=== PATIENT | female | born 1970 | race Hispanic/Latino ===

== ENCOUNTER 2024-08-16 01:53 | Inpatient (IN) | payer OTHER ==
[2024-08-16] MEDS ORDERED: KETOROLAC 30 MG/ML INJ ONE (02:25)
[2024-08-16] MEDS ORDERED: ONDANSETRON 4 MG/2 ML VIAL ONE ×2 (02:25→11:02)
[2024-08-16] MEDS ORDERED: NA CHLORIDE 0.9% 1,000 ML ONE ×2 (02:26→05:07)
[2024-08-16] MEDS ORDERED: MORPHINE 4 MG/ML SYR ONE ×2 (02:26→05:07)
[2024-08-16] MEDS ORDERED: MORPHINE 2 MG/ML SYR ONE (02:26)
[2024-08-16] MEDS ORDERED: FAMOTIDINE 20 MG/2 ML VIAL IV ONE (02:26)
[2024-08-16 02:57] LABS: Absolute Basophils 0.1 K/uL (0-0.5); Absolute Eosinophils 0.1 K/uL (0-0.5); Absolute Lymphocytes (CBC) 1.8 K/uL (0.7-4.9); Absolute Monocytes 0.5 K/uL (0.1-1.3); Absolute Neutrophil 10.3 K/uL (1.8-8.0); Basophils % 0.6 % (0-1.3); Eosinophils % 0.9 % (0-4.4); Hematocrit 39.2 % (36.0-45.0); Lymphocytes % 14.1 % (15.3-44.8); MCH 30.4 pg (27.0-35.0); MCHC 33.2 g/dL (32.0-36.0); MCV 91.6 fL (80-100); MPV 9.6 fL (7.6-11.3); Monocytes % 4.1 % (3.3-12.3); Neutrophils % 80.3 % (41.7-73.7); Nucleated Red Blood Cells % 0.1 % (0-0); Platelets 323 thou/uL (152-406); RBC Red Blood Cell Count 4.28 M/uL (3.86-4.86); Red Cell Distribution Width 12.8 % (12.1-15.2)
[2024-08-16 03:09] LABS: Albumin 3.7 g/dL (3.4-5.0); Albumin/Globulin Ratio 0.9 (1.1-1.8); Anion Gap 8.8 mEq/L (5.0-15.0); Bilirubin Total 0.3 mg/dL (0.2-1.0); Potassium 3.8 mEq/L (3.5-5.1); Protein, Total 7.7 g/dL (6.4-8.2)
--- NOTE | 2024-08-16 03:36 | RAD REPORT ---
CLINICAL HISTORY: Abdominal pain COMPARISON: None. TECHNIQUE: US ABDOMEN LIMITED 08/16/2024 2:18 AM PRESSURE DISPATCHER FINDINGS: Gallbladder contains multiple gallstones. There is trace pericholecystic fluid. Common bile duct tali ures 9 mm. There is a reported negative sonographic Magana's sign. IMPRESSION: Cholelithiasis with trace pericholecystic fluid. Negative sonographic Magana's sign. Electronically signed by: Desmond Spencer MD 08/16/2024 03:33 AM PRESSURE DISPATCHER RP Due to temporary technical issues with the PACS/[employer] reporting system, reports are being signed by the in-house radiologist without review as a courtesy to ensure prompt reporting. The interpreting radiologist is fully responsible for the content of the report. Transcribed Date/Time: 08/16/2024 3:36 AM
[2024-08-16] MEDS ORDERED: METOCLOPRAMIDE 10 MG/2mL INJ ONE (05:06)
[2024-08-16] MEDS ORDERED: PIPERACIL/TAZO 3.375 GM VIAL IV ONE (05:07)
[2024-08-16] MEDS ORDERED: NA CHLORIDE 0.9% 100 ML ONE (05:07)
[2024-08-16] MEDS ORDERED: ACETAMINOPHEN 325 MG TABLET PO PRN (05:29)
--- NOTE | 2024-08-16 05:34 | P.HP ---
Certification for Inpatient Patient admitted to: Inpatient With expected LOS: >2 Midnights Practitioner: I am a practitioner with admitting privileges, knowledge of patient current condition, hospital course, and medical plan of care. Services: Services provided to patient in accordance with Admission requirements found in Title 42 Section 412.3 of the Code of Federal Regulations Patient History Date of Service: 08/16/24 Reason for admission: Abdominal Pain History of Present Illness: 54-year-old female with past medical history of fibroid uterus status post hysterectomy who started having abdominal pain last night. Pain is located in the epigastric region radiating to upper abdomen. Sharp, 8 out of 10 in severity, intermittent, associated with some nausea but no vomiting. Denies any fever or chills. No chest pain or shortness of breath. Pain is 1 out of 10 in severity at the time of interview with pain medication. Patient was assessed in the ER and is admitted for further management of acute cholecystitis and surgical consult Home medications list reviewed: Yes - Past Medical/Surgical History Past Medical History: Reviewed- Non-Contributory Past Surgical History: Reviewed- Non-Contributory -: Hysterectomy - Family History Family History: Reviewed- Non-Contributory - Social History Smoking Status: Never smoker Review of Systems 10-point ROS is otherwise unremarkable Physical Examination - Vital Signs Temperature: 98.2 F Blood Pressure: 136/72 Pulse: 78 Respirations: 18 Pulse Ox (%): 94 - Physical Exam General: Alert, In no apparent distress, Oriented x3 HEENT: Atraumatic, Normocephalic Neck: Supple Respiratory: Clear to auscultation bilaterally, Normal air movement Cardiovascular: Regular rate/rhythm, Normal S1 S2 Capillary refill: <2 Seconds Gastrointestinal: Soft and benign, W/out hepatosplenomegaly, Tenderness Musculoskeletal: No clubbing Integumentary: No rashes Neurological: Normal strength at 5/5 x4 extr, Cranial nerves 3-12 intact, Normal reflexes 2+ Lymphatics: No axilla or inguinal lymphadenopathy - Studies Laboratory Data (last 24 hrs) 08/16/24 08/16/24 02:30 02:30 WBC 12.80 H Hgb 13.0 Hct 39.2 Plt Count 323 Sodium 139 Potassium 3.8 BUN 15 Creatinine 0.77 Glucose 136 H Total Bilirubin 0.3 AST 18 ALT 26 Alkaline Phosphatase 95 Lipase 38 Assessment and Plan - Plan Acute cholecystitis Ultrasound suggestive of cholelithiasis Surgical consult: Dr. Villeda Pain control Started on IV antibiotic IV hydration Leukocytosis Will monitor CBC in a.m. GI/DVT prophylaxis Advanced directive full code Discharge Plan: Home Plan to discharge in: 48 Hours - Advance Directives Does patient have a Living Will: No Does patient have a Durable POA for Healthcare: No - Code Status/Comfort Care Code Status: Full Code Time Spent Managing Pts Care (In Minutes): 48
--- NOTE | 2024-08-16 05:40 | ER ---
Nurse's Notes [facility] Name: Natalie Velazquez Age: 54 yrs Sex: Female : 1970 Arrival Date: 08/16/2024 Time: 01:53 Bed 7 Private MD: Diagnosis: Cholelithiasis with acute cholecystitis Presentation: 08/16 02:13 Chief complaint: Patient states: upper abdominal pain, epigastric pain radiating to lg3 chest and upper back with vomiting beginning 6 day ago. Coronavirus screen: Client denies travel out of the [place] in the last 14 days. At this time, the client does not indicate any symptoms associated with coronavirus-19. Ebola Screen: No symptoms or risks identified at this time. Initial Sepsis Screen: Does the patient meet any 2 criteria? No. Patient's initial sepsis screen is negative. Does the patient have a suspected source of infection? No. Patient's initial sepsis screen is negative. Risk Assessment: Do you want to hurt yourself or someone else? Patient reports no desire to harm self or others. Onset of symptoms was August 10, 2024. 02:13 Method Of Arrival: Ambulatory lg3 02:13 Acuity: ASHLEY 3 lg3 Triage Assessment: 02:17 General: Appears in no apparent distress. uncomfortable, Behavior is calm, cooperative. lg3 Pain: Complains of pain in epigastric area Pain radiates to back. EENT: No deficits noted. No signs and/or symptoms were reported regarding the EENT system. Neuro: No deficits noted. Manzo Agitation-Sedation Scale (RASS): 0 - Alert and Calm Level of Consciousness is awake, alert, obeys commands, Oriented to person, place, time, situation. Cardiovascular: No deficits noted. Capillary refill < 3 seconds Clubbing of nail beds is absent JVD is absent Patient's skin is warm and dry. Respiratory: No deficits noted. Airway is patent Respiratory effort is even, unlabored, Respiratory pattern is regular, symmetrical. GI: Abdomen is round non-distended, Reports upper abdominal pain, cramping, epigastric pain, nausea, vomiting. : No signs and/or symptoms were reported regarding the genitourinary system. Derm: No deficits noted. No signs and/or symptoms reported regarding the dermatologic system. Skin is intact, is healthy with good turgor, Skin is dry, Skin is normal, Skin temperature is warm. Musculoskeletal: No deficits noted. Circulation, motion, and sensation intact. Range of motion: intact in all extremities. 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 - Infectious Disease History:: Denies. - Social history:: Smoking status: Patient denies any tobacco usage or history of. Patient uses alcohol, occasionally. Patient/guardian denies using street drugs. - Family history:: not pertinent. Screenin:20 [facility] ED Fall Risk Assessment (Adult) History of falling in the last 3 months, lg3 including since admission No falls in past 3 months (0 pts) Confusion or Disorientation No (0 pts) Intoxicated or Sedated No (0 pts) Impaired Gait No (0 pts) Mobility Assist Device Used No (0 pt) Altered Elimination No (0 pt) Score/Fall Risk Level 0 - 2 = Low Risk Oriented to surroundings, Maintained a safe environment, Educated pt \T\ family on fall prevention, incl call for assistance when getting out of bed, Assessed \T\ reinforced patient's understanding of fall precautions. Abuse screen: Denies threats or abuse. Denies injuries from another. Nutritional screening: No deficits noted. Tuberculosis screening: No symptoms or risk factors identified. 05:30 [facility] ED Fall Risk Assessment (Adult) History of falling in the last 3 months, ay including since admission No falls in past 3 months (0 pts) Confusion or Disorientation No (0 pts) Intoxicated or Sedated No (0 pts) Impaired Gait No (0 pts) Mobility Assist Device Used No (0 pt) Altered Elimination No (0 pt) Score/Fall Risk Level 0 - 2 = Low Risk Oriented to surroundings, Maintained a safe environment, Educated pt \T\ family on fall prevention, incl call for assistance when getting out of bed, Assessed \T\ reinforced patient's understanding of fall precautions. Assessment: 02:20 General: see triage assessment. lg3 05:41 General: Appears in no apparent distress. comfortable, Behavior is calm, cooperative. ay Pain: Complains of pain in abdomen Pain radiates to back. Neuro: Level of Consciousness is awake, alert, obeys commands, Oriented to person, place, time, situation, Director Multimedia are equal bilaterally Speech is normal. Cardiovascular: No deficits noted. Respiratory: No deficits noted. GI: Bowel sounds present X 4 quads. : No deficits noted. EENT: No deficits noted. Derm: No deficits noted. Musculoskeletal: No deficits noted. Vital Signs: 02:13 BP 117 / 78; Pulse 80; Resp 17; Temp 97.8; Pulse Ox 100% on R/A; Weight 77.11 kg (R); lg3 Height 5 ft. 6 in. (R); Pain 8/10; 05:09 BP 116 / 74; Pulse 73; Resp 15; Pulse Ox 99% on R/A; ty 05:30 BP 105 / 65; Pulse 69; Resp 18; Pulse Ox 97% on R/A; ay 02:13 Body Mass Index 27.44 (77.11 kg, 167.64 cm) lg3 02:13 Pain Scale: Adult lg3 Wilber Coma Score: 05:18 Eye Response: spontaneous(4). Motor Response: obeys commands(6). Verbal Response: sp4 oriented(5). Total: 15. 05:30 Eye Response: spontaneous(4). Motor Response: obeys commands(6). Verbal Response: ay oriented(5). Total: 15. ED Course: 01:53 Patient arrived in ED. jj6 01:58 Fidel Roberts MD is Attending Physician. sp4 02:17 Triage completed. lg3 02:17 Arm band placed on right wrist. lg3 02:20 Patient has correct armband on for positive identification. Placed in gown. Bed in low lg3 position. Call light in reach. Side rails up X 1. Client placed on continuous cardiac and pulse oximetry monitoring. NIBP monitoring applied. Door closed. Noise minimized. Warm blanket given. Pillow given. Family accompanied patient. 02:20 Patient maintains SpO2 saturation greater than 95% on room air. lg3 02:28 Inserted saline lock: 20 gauge in right antecubital area, using aseptic technique. ty Blood collected. Flushed with 10 mL NS. 02:30 Initial lab(s) drawn, by me, sent to lab. ty 02:34 CBC with Diff Sent. ty 02:34 CMP Sent. ty 02:34 Lipase Sent. ty 02:58 Abdomen Limited US In Process Unspecified. EDMS 03:06 Vidhi Black, RN is Primary Nurse. lg3 03:36 CT Abd/Pelvis - IV Contrast Only In Process Unspecified. EDMS 05:03 Test, Urine Sent. ty 05:03 Urinalysis w/ reflexes Sent. ty 05:03 Urine collected: clean catch specimen, clear. ty 05:30 Client placed on continuous cardiac and pulse oximetry monitoring. NIBP monitoring ay applied. NIBP on. Door closed. Noise minimized. Lights dimmed. Warm blanket given. 05:30 Patient maintains SpO2 saturation greater than 95% on room air. ay 05:39 Kiran Patricio MD is Hospitalizing Provider. sp4 05:40 Primary Nurse role handed off by Vidhi Black, RN ay 05:40 Twin Bui RN is Primary Nurse. ay 07:05 Provided Education on: Procedure Consent. ay 07:05 No provider procedures requiring assistance completed. ay 10:37 Patient admitted, IV remains in place. intact, No redness/swelling at site. jl7 Administered Medications: 02:34 Drug: Famotidine IVP 20 mg IVP once; dilute with 10 mL 0.9% NaCl; give over 2 minutes lg3 Route: IVP; Site: right antecubital; 05:03 Follow up: Response: No adverse reaction lg3 02:34 Drug: Ondansetron IVP 4 mg IVP once; over 2 minutes Route: IVP; Site: right antecubital;lg3 05:02 Follow up: Response: No adverse reaction lg3 02:34 Drug: NS 0.9% IV 1000 ml IV at 1 bolus Per protocol; to be given as a bolus over 60 lg3 minutes Route: IV; Rate: 1 bolus; Site: right antecubital; 03:40 Follow up: Response: No adverse reaction; IV Status: Completed infusion; IV Intake: lg3 1000ml 02:35 Drug: morphine IVP or IV 6 mg IVP once over 4 mins Route: IVP; Infused Over: 4 mins; lg3 Site: right antecubital; 05:03 Follow up: Response: No adverse reaction; Marked relief of symptoms; Pain is decreased lg3 02:35 Drug: TORadol - Ketorolac IVP 15 mg IVP once Route: IVP; Site: right antecubital; lg3 05:02 Follow up: Response: No adverse reaction lg3 05:30 Drug: Piperacillin-Tazobactam IVPB 3.375 grams IVPB once over 60 mins; (mix in NS 100 ay mL) Route: IVPB; Infused Over: 60 mins; Site: right antecubital; 05:58 Follow up: Response: No adverse reaction ay 07:09 Follow up: IV Status: Completed infusion; IV Intake: 100ml ay 05:30 Drug: morphine IVP or IV 4 mg IVP once over 4 mins Route: IVP; Infused Over: 4 mins; ay Site: right antecubital; 05:58 Follow up: Response: No adverse reaction ay 05:30 Drug: metoCLOPramide IVP 10 mg IVP once; over 1 to 2 minutes Route: IVP; Site: right ay antecubital; 05:57 Follow up: Response: No adverse reaction ay 05:30 Drug: NS 0.9% IV 1000 ml IV at 125 ml/hr continuous Route: IV; Rate: 125 ml/hr; Site: ay right antecubital; 05:57 Follow up: Response: No adverse reaction ay 07:07 Follow up: Response: No adverse reaction; IV Status: Infusion continued upon admission ay Medication: 05:30 VIS not applicable for this client. ay Intake: 03:40 IV: 1000ml; Total: 1000ml. lg3 07:09 IV: 100ml; Total: 1100ml. ay Outcome: 05:40 Decision to Hospitalize by Provider. sp4 07:04 Admitted to ER Hold. Please see [facility] for further documentation. ay 07:04 Condition: stable 07:04 Instructed on the need for admit, 10:37 Patient left the ED. jl7 Signatures: Dispatcher [employer] EDMS Nancie Llanes RN RN jl7 Vidhi Black RN RN lg3 Kavita Lopez Sergey, MD MD sp4 Gómez Patel Awudu, RN RN ay
--- NOTE | 2024-08-16 05:40 | EDPHYS ---
Physician Documentation [facility] Name: Natalie Velazquez Age: 54 yrs Sex: Female : 1970 Arrival Date: 08/16/2024 Time: 01:53 Bed 7 Private MD: ED Physician Fidel Roberts HPI: 08/16 01:58 This 54 yrs old Female presents to ER via Unassigned with complaints of sp4 Epigastric Pain, Chest Pain. 05:18 54-year-old female presents with acute onset of upper abdominal pain associated with sp4 vomiting worsening in the last 6 days.. 05:18 History of total abdominal hysterectomy.. 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 - Infectious Disease History:: Denies. - Social history:: Smoking status: Patient denies any tobacco usage or history of. Patient uses alcohol, occasionally. Patient/guardian denies using street drugs. - Family history:: not pertinent. ROS: 05:18 Constitutional: Negative for fever, chills, and weight loss, Eyes: Negative for injury, sp4 pain, redness, and discharge, Abdomen/GI: Positive upper abdominal pain positive nausea vomiting. 05:18 All other systems are negative, Exam: 05:18 Constitutional: This is a well developed, well nourished patient who is awake, alert, sp4 and in no acute distress. Head/Face: Normocephalic, atraumatic. Eyes: Pupils equal round and reactive to light, extra-ocular motions intact. Lids and lashes normal. Conjunctiva and sclera are not injected. Cornea within normal limits. Periorbital areas with no swelling, redness, or edema. ENT: Nares patent. No nasal discharge, no septal abnormalities noted. Tympanic membranes are normal and external auditory canals are clear. Oropharynx with no redness, swelling, or masses, exudates, or evidence of obstruction, uvula midline. Mucous membranes moist. Neck: Trachea midline, no thyromegaly or masses palpated, and no cervical lymphadenopathy. Supple, full range of motion without nuchal rigidity, or vertebral point tenderness. Chest/axilla: Normal chest wall appearance and motion. Nontender with no deformity. No lesions are appreciated. Cardiovascular: Regular rate and rhythm with a normal S1 and S2. No gallops, murmurs, or rubs. Normal PMI, no JVD. No pulse deficits. Respiratory: Lungs have equal breath sounds bilaterally, clear to auscultation and percussion. No rales, rhonchi or wheezes noted. No increased work of breathing, no retractions or nasal flaring. Abdomen/GI: Soft, with normal bowel sounds. No distension or tympany. No guarding or rebound. No evidence of tenderness throughout. Back: No spinal tenderness. No costovertebral tenderness. Skin: Warm, dry with normal turgor. Normal color with no rashes, no lesions, and no evidence of cellulitis. MS/ Extremity: Pulses equal, no cyanosis. Neurovascular intact. Full, normal range of motion. Neuro: Awake and alert, GCS 15, oriented to person, place, time, and situation. Cranial nerves II-XII grossly intact. Motor strength 5/5 in all extremities. Sensory grossly intact. Psych: Awake, alert, with orientation to person, place and time. Behavior, mood, and affect are within normal limits Vital Signs: 02:13 BP 117 / 78; Pulse 80; Resp 17; Temp 97.8; Pulse Ox 100% on R/A; Weight 77.11 kg (R); lg3 Height 5 ft. 6 in. (R); Pain 8/10; 05:09 BP 116 / 74; Pulse 73; Resp 15; Pulse Ox 99% on R/A; ty 05:30 BP 105 / 65; Pulse 69; Resp 18; Pulse Ox 97% on R/A; ay 02:13 Body Mass Index 27.44 (77.11 kg, 167.64 cm) lg3 02:13 Pain Scale: Adult lg3 Anderson Coma Score: 05:18 Eye Response: spontaneous(4). Motor Response: obeys commands(6). Verbal Response: sp4 oriented(5). Total: 15. 05:30 Eye Response: spontaneous(4). Motor Response: obeys commands(6). Verbal Response: ay oriented(5). Total: 15. MDM: 02:02 Medical Screening Exam initiated sp4 04:53 ED course: EXAM DESCRIPTION: Abdomen Pelvis W Contrast RadLex: CTABDOMEN PELVIS WITH IV sp4 CONTRAST CLINICAL HISTORY: 54 years Female; ABD PAIN; IV ONLYBed Name: 12 TECHNIQUE: CT of the abdomen and pelvis [with] intravenous contrast. All CT scans at this facility use dose modulation, iterative reconstruction, and/or weight based dosing when appropriate to reduce radiation dose to as low as reasonably achievable. COMPARISON: None. FINDINGS: Lower thorax: Mild bibasilar atelectasis. Abdomen: Stomach:Within normal limits Liver:No focal lesions. No intrahepatic ductal distention. Gallbladder:Cholelithiasis with wall thickening. Pancreas:Within normal limits Spleen:Within normal limits Right kidney:No hydronephrosis. No focal lesion. Left kidney:No hydronephrosis. No focal lesion. Adrenal glands:Within normal limits Vascular structures:Within normal limits Nodes:No lymphadenopathy by size criteria Pelvis: Small bowel:No significant distention. Appendix:Within normal limits Colon:No distention or acute pericolonic edema. Peritoneum: No free intraperitoneal fluid or air. Bones: No acute bone findings. Bladder: Unremarkable. Reproductive organs: No acute findings. IMPRESSION: Cholelithiasis with gallbladder wall thickening, concerning for acute cholecystitis. Please see same-day dedicated ultrasound for further evaluation. Electronically signed by: Carmen Villegas MD 08/16/2024 04:13 AM. ED course: CLINICAL HISTORY: Abdominal pain COMPARISON: None. TECHNIQUE: US ABDOMEN LIMITED 08/16/2024 2:18 AM LAPEL BASTER FINDINGS: Gallbladder contains multiple gallstones. There is trace pericholecystic fluid. Common bile duct measures 9 mm. There is a reported negative sonographic Magana's sign. IMPRESSION: Cholelithiasis with trace pericholecystic fluid. Negative sonographic Magana's sign. . 05:38 Differential diagnosis: acute pericarditis, gastritis, pericarditis, pleurisy, sp4 pneumonia. Data reviewed: vital signs, nurses notes, lab test result(s), EKG, radiologic studies, CT scan, ultrasound. ED course: Patient has evidence of acute cholecystitis. Will be admitted for further evaluation.. 05:38 Consideration of Admission/Observation Patient was admitted/placed on observation. sp4 Escalation of care including admission/observation considered. Management of patient was discussed with the following: Hospitalist: Sheng ORTIZ . Cupola Melter: Dane ORTIZ . 08/16 02:18 Order name: CBC with Diff; Complete Time: 04:48 sp4 08/16 02:18 Order name: CMP; Complete Time: 04:48 sp4 08/16 02:18 Order name: Lipase; Complete Time: 04:48 sp4 08/16 02:18 Order name: Test, Urine; Complete Time: 08:52 sp4 08/16 02:18 Order name: Urinalysis w/ reflexes; Complete Time: 08:52 sp4 08/16 05:20 Order name: PT-INR; Complete Time: 08:52 sp4 08/16 05:34 Order name: Urinalysis w/ reflexes EDAL 08/16 05:34 Order name: CBC with Automated Diff EDAL 08/16 05:34 Order name: CBC with Automated Diff EDAL 08/16 05:34 Order name: Comprehensive Metabolic Panel EDAL 08/16 05:34 Order name: Comprehensive Metabolic Panel [facility] 08/16 02:18 Order name: Abdomen Limited US; Complete Time: 04:48 sp4 08/16 02:18 Order name: CT Abd/Pelvis - IV Contrast Only; Complete Time: 08:52 sp4 08/16 05:20 Order name: EKG; Complete Time: 05:20 sp4 08/16 05:34 Order name: CONS Physician Consult [facility] 08/16 02:18 Order name: IV Saline Lock; Complete Time: 02:34 sp4 08/16 02:18 Order name: Labs collected and sent; Complete Time: 02:34 sp4 08/16 04:55 Order name: NPO [facility] 08/16 05:20 Order name: EKG - Nurse/Tech sp4 Administered Medications: 02:34 Drug: Famotidine IVP 20 mg IVP once; dilute with 10 mL 0.9% NaCl; give over 2 minutes lg3 Route: IVP; Site: right antecubital; 05:03 Follow up: Response: No adverse reaction lg3 02:34 Drug: Ondansetron IVP 4 mg IVP once; over 2 minutes Route: IVP; Site: right antecubital;lg3 05:02 Follow up: Response: No adverse reaction lg3 02:34 Drug: NS 0.9% IV 1000 ml IV at 1 bolus Per protocol; to be given as a bolus over 60 lg3 minutes Route: IV; Rate: 1 bolus; Site: right antecubital; 03:40 Follow up: Response: No adverse reaction; IV Status: Completed infusion; IV Intake: lg3 1000ml 02:35 Drug: morphine IVP or IV 6 mg IVP once over 4 mins Route: IVP; Infused Over: 4 mins; lg3 Site: right antecubital; 05:03 Follow up: Response: No adverse reaction; Marked relief of symptoms; Pain is decreased lg3 02:35 Drug: TORadol - Ketorolac IVP 15 mg IVP once Route: IVP; Site: right antecubital; lg3 05:02 Follow up: Response: No adverse reaction lg3 05:30 Drug: Piperacillin-Tazobactam IVPB 3.375 grams IVPB once over 60 mins; (mix in NS 100 ay mL) Route: IVPB; Infused Over: 60 mins; Site: right antecubital; 05:58 Follow up: Response: No adverse reaction ay 07:09 Follow up: IV Status: Completed infusion; IV Intake: 100ml ay 05:30 Drug: morphine IVP or IV 4 mg IVP once over 4 mins Route: IVP; Infused Over: 4 mins; ay Site: right antecubital; 05:58 Follow up: Response: No adverse reaction ay 05:30 Drug: metoCLOPramide IVP 10 mg IVP once; over 1 to 2 minutes Route: IVP; Site: right ay antecubital; 05:57 Follow up: Response: No adverse reaction ay 05:30 Drug: NS 0.9% IV 1000 ml IV at 125 ml/hr continuous Route: IV; Rate: 125 ml/hr; Site: ay right antecubital; 05:57 Follow up: Response: No adverse reaction ay 07:07 Follow up: Response: No adverse reaction; IV Status: Infusion continued upon admission ay Disposition Summary: 08/16/24 05:40 Hospitalization Ordered Notes: Hospitalization Status: Inpatient Admission sp4 Provider: Kiran Patricio sp4 Condition: Stable sp4 Problem: new sp4 Symptoms: have improved sp4 Bed/Room Type: Standard sp4 Location: [facility] ER HOLD(08/16/24 05:41) rv1 Room Assignment: ERHOLD-(08/16/24 05:41) rv1 Diagnosis - Cholelithiasis with acute cholecystitis sp4 Forms: - Medication Reconciliation Form sp4 - SBAR form sp4 - Leadership Thank You Letter sp4 Signatures: Dispatcher [employer] EDVidhi Jameson RN RN lg3 Fawn Finnegan rv1 Fidel Roberts MD MD sp4 Twin Bui RN RN ay Corrections: (The following items were deleted from the chart) 02:18 02:18 CBC+H.LAB.BRZ ordered. EDMS EDMS 02:18 02:18 COMPREHENSIVE METABOLIC PANEL+C.LAB.BRZ ordered. EDMS EDMS 02:18 02:18 LIPASE+C.LAB.BRZ ordered. EDMS EDMS 02:18 02:18 Test, Urine+UC.LAB.BRZ ordered. EDMS EDMS 02:18 02:18 Urinalysis+U.LAB.BRZ ordered. EDMS EDMS 05:41 05:40 Telemetry/MedSurg (observation) sp4 rv1 05:41 05:40 sp4 rv1
[2024-08-16 05:41] LABS: Specific Gravity > 1.030 (1.005-1.030); Urine Bacteria None Seen /HPF (<20); Urine Bilirubin NEGATIVE (Negative); Urine Blood Negative (Negative); Urine Clarity Clear (Clear); Urine Color Colorless (Yellow); Urine Culture Reflex Order NOT NEEDED; Urine Glucose NEGATIVE (Negative); Urine Ketones NEGATIVE (Negative); Urine Microscopic Reflex YN ORDER UMIC; Urine Nitrite NEGATIVE (Negative); Urine Protein NEGATIVE (Negative); Urine RBC <5 /HPF (None Seen); Urine Urobilinogen Normal (Normal); Urine WBC <5 /HPF (<5)
[2024-08-16 05:42] LABS: Specific Gravity > 1.030 (1.005-1.030)
[2024-08-16] MEDS: NA CHLORIDE 0.9% 1,000 ML IV SCH (06:00)
[2024-08-16 06:46] VITALS: BMI 27.4
--- NOTE | 2024-08-16 06:49 | RAD REPORT ---
EXAM DESCRIPTION: Abdomen Pelvis W Contrast RadLex: CT ABDOMEN PELVIS WITH IV CONTRAST CLINICAL HISTORY: 54 years Female; ABD PAIN; IV ONLY Bed Name: 12 TECHNIQUE: CT of the abdomen and pelvis [with] intravenous contrast. All CT scans at this facility use dose modulation, iterative reconstruction, and/or weight based dosi ng when appropriate to reduce radiation dose to as low as reasonably achievable. COMPARISON: None. FINDINGS: Lower thorax: Mild bibasilar atelectasis. Abdomen: Stomach: Within normal limits Liver: No focal lesions. No intrahepatic ductal distention. Gallbladder: Cholelithiasis with wall thickening. Pancreas: Within normal limits Spleen: Within normal limits Right kidney: No hydronephrosis. No focal lesion. Left kidney: No hydronephrosis. No focal lesion. Adrenal glands: Within normal limits Vascular structures: Within normal limits Nodes: No lymphadenopathy by size criteria Pelvis: Small bowel: No significant distention. Appendix: Within normal limits Colon: No distention or acute pericolonic edema. Peritoneum: No free intraperitoneal fluid or air. Bones: No acute bone findings. Bladder: Unremarkable. Reproductive organs: No acute findings. IMPRESSION: Cholelithiasis with gallbladder wall thickening, concerning for acute cholecystitis. Please see same- day dedicated ultrasound for further evaluation. Electronically signed by: Carmen Villegas MD 08/16/2024 04:13 AM [facility] Due to temporary technical issues with the [employer] reporting system, reports are being madonna d by the in-house radiologist without review as a courtesy to ensure prompt reporting the interpreting radiologist is fully responsible for the content of the report. Transcribed Date/Time: 08/16/2024 6:49 AM
[2024-08-16 07:07] LABS: PT Prothrombin Time 11.4 SECONDS (9.4-12.5); Protime INR 1.02
[2024-08-16] MEDS ORDERED: ENOXAPARIN 40 MG/0.4 ML SQ ONE (08:03)
[2024-08-16] MEDS: KCL 20 MEQ/100 mL IVPB 20 MEQ/100 ML BAG IV SCH (09:00)
[2024-08-16] MEDS: ENOXAPARIN 40 MG/0.4 ML SQ SCH (09:00)
[2024-08-16] MEDS ORDERED: KCL 20 MEQ/100 mL IVPB 100 ML IV ONE (09:51)
[2024-08-16] MEDS: Ringers Lactate 1,000 ML IV ONE (11:00)
[2024-08-16] MEDS ORDERED: propofoL 200 MG/20 ML VIAL IV ONE (11:02)
[2024-08-16] MEDS ORDERED: FENTANYL CITR 100 MCG/2 ML ONE (11:02)
[2024-08-16] MEDS ORDERED: MIDAZOLAM HCL 2 MG/2 ML INJ ONE (11:02)
[2024-08-16] MEDS ORDERED: ROCURONIUM 50 MG/5 ML VIAL IV ONE (11:02)
[2024-08-16] MEDS ORDERED: LIDOCAINE 2% MPF 5 ML VIAL ONE (11:02)
[2024-08-16] MEDS: FAMOTIDINE 20 MG/2 ML VIAL IV ONE (12:13)
[2024-08-16] MEDS: HYDROMORPHONE HCL 1 MG/ML INJ ONE (12:13)
[2024-08-16] MEDS: PIPER TAZO 3.375 GM in NA CHLORIDE 0.9% 100 ML IV ONE (12:30)
[2024-08-16] MEDS ORDERED: GLYCOPYRROLATE 0.2 MG/ML SYR ONE (12:58)
[2024-08-16] MEDS: LIDOCAINE HCL/EPINEPHRINE 20 ML MDV ONE (12:59)
[2024-08-16] MEDS ORDERED: dexAMETHasone 4 MG/ML VIAL ONE (13:19)
--- NOTE | 2024-08-16 13:51 | P.OP ---
Preoperative diagnosis: Cholecystitis with Cholelithiasis Postoperative diagnosis: Cholecystitis with Cholelithiasis Primary procedure: Laparoscopic Cholecystectomy with ICG Anesthesia: GETA + Local Estimated blood loss: <5cc Specimen: Gallbladder Findings: Inflammed Gallbladder with Colon in close aposition Complications: None Implants: Sandie Hemostatic Powder Transferred to: Recovery Room Condition: Good
[2024-08-16] MEDS ORDERED: PIPER TAZO 3.375 GM in NA CHLORIDE 0.9% 100 ML IV SCH ×2 (14:00→17:00)
[2024-08-16] MEDS: FENTANYL CITR 100 MCG/2 ML ONE (14:35)
[2024-08-16 15:03] VITALS: O2SAT 96
--- NOTE | 2024-08-16 16:08 | P.DS ---
Admission Date: 08/16/24 Discharge Date: 08/17/24 Disposition: ROUTINE DISCHARGE Discharge Condition: GOOD Reason for Admission: Abdominal Pain Consultations: Dr. Vela Procedures: Laparoscopic cholecystectomy Brief History of Present Illness: 54-year-old female with past medical history of fibroid uterus status post hysterectomy who started having abdominal pain last night. Pain is located in the epigastric region radiating to upper abdomen. Sharp, 8 out of 10 in severity, intermittent, associated with some nausea but no vomiting. Denies any fever or chills. No chest pain or shortness of breath. Pain is 1 out of 10 in severity at the time of interview with pain medication. Patient was assessed in the ER and is admitted for further management of acute cholecystitis and surgical consult Hospital Course: Ms. Zhou Velazquez was admitted yesterday for acute cholecystitis. She underwent laparoscopic cholecystectomy 08/16/[address] Vela. There were no postop complications and she is doing well this morning. Tolerating clear liquids, passing gas, will be changed to p.o. antibiotics. She will need to follow-up with her surgeon in 2 weeks. Vital Signs/Physical Exam: Temp Pulse Resp BP Pulse Ox 97.0 F 79 16 113/71 99 08/16/24 14:56 08/16/24 14:56 08/16/24 14:56 08/16/24 14:56 08/16/24 08:00 General: Alert, In no apparent distress, Oriented x3 HEENT: Atraumatic, Normocephalic Neck: Supple Respiratory: Clear to auscultation bilaterally, Normal air movement Cardiovascular: Regular rate/rhythm, Normal S1 S2 Capillary refill: <2 Seconds Gastrointestinal: Hypoactive, Other (Dermabond over laparoscope incision, clean and dry) Musculoskeletal: No clubbing, No swelling Integumentary: No rashes, No breakdown Neurological: Normal speech, Sensation intact, Normal affect Lymphatics: No axilla or inguinal lymphadenopathy External genitalia: Deferred Rectal: Deferred Laboratory Data at Discharge: WBC 12.80 thou/uL (4.3-10.9) H 08/16/24 02:30 Hgb 13.0 g/dL (12.0-15.0) 08/16/24 02:30 Hct 39.2 % (36.0-45.0) 08/16/24 02:30 Plt Count 323 thou/uL (152-406) 08/16/24 02:30 PT 11.4 SECONDS (9.4-12.5) 08/16/24 06:50 INR 1.02 08/16/24 06:50 Sodium 139 mEq/L (136-145) 08/16/24 02:30 Potassium 3.8 mEq/L (3.5-5.1) 08/16/24 02:30 BUN 15 mg/dL (7-18) 08/16/24 02:30 Creatinine 0.77 mg/dL (0.55-1.02) 08/16/24 02:30 Glucose 136 mg/dL (74-106) H 08/16/24 02:30 Total Bilirubin 0.3 mg/dL (0.2-1.0) 08/16/24 02:30 AST 18 U/L (15-37) 08/16/24 02:30 ALT 26 U/L (13-56) 08/16/24 02:30 Alkaline Phosphatase 95 U/L (45-117) 08/16/24 02:30 Lipase 38 U/L (13-75) 08/16/24 02:30 Home Medications: Amox/Clavulanate [Augmentin 875-125 Tab] 875 mg PO BID #14 tab 08/17/24 Tramadol HCl/Acetaminophen [Tramadol-Acetaminophn 37.5-325] 1 each PO QIDP PRN #15 tab 08/17/24 New Medications: Amox/Clavulanate [Augmentin 875-125 Tab] 875 mg PO BID #14 tab Tramadol HCl/Acetaminophen [Tramadol-Acetaminophn 37.5-325] 1 each PO QIDP PRN #15 tab PRN Reason: Pain Scale 5-7 (Moderate) Physician Discharge Instructions: Ms. Zhou Velazquez was admitted yesterday for acute cholecystitis. She underwent laparoscopic cholecystectomy 08/16/[address] Vela. There were no postop complications and she is doing well this morning. Tolerating clear liquids, passing gas, will be changed to p.o. antibiotics. She will need to follow-up with her surgeon in 2 weeks. Diet: Grainger Activity: No lifting more than 10 lbs Followup: Ho Vela MD [ACTIVE - CAN ADMIT] - Zena Frias MD [Primary Care Provider] -
[2024-08-16] MEDS: PIPER TAZO 3.375 GM in NA CHLORIDE 0.9% 100 ML IV SCH (20:45)
[2024-08-16] MEDS: HYDROCODONE/APAP 5/325 MG TAB PO PRN (22:32)
[2024-08-16] MEDS: ONDANSETRON 4 MG/2 ML VIAL IV PRN (22:32)
--- NOTE | 2024-08-17 01:13 | OP ---
Date of Procedure: 08/16/2024 Surgeon: Ho Vela MD, Preoperative Diagnosis: Cholecystitis with cholelithiasis. Postoperative Diagnosis: Cholecystitis with cholelithiasis. Procedure: Laparoscopic cholecystectomy with indocyanine green cholangiography. Anesthesia: Endotracheal plus local, 1% lidocaine. Estimated Blood Loss: Less than 5 cc. Specimen: Gallbladder. Findings: Inflamed gallbladder with colon in close apposition. Complication: None. Implants: Sandie hemostatic powder. Disposition: The patient was transferred to recovery room in good condition. Procedure In Detail: After informed consent was obtained, patient was brought to the operating room, prepped and draped in the usual sterile fashion. After adequate anesthesia was achieved, I made a s upraumbilical incision down to subcutaneous tissues, 5 mm 0-degree optical trocar was introduced in t he abdomen without incident or complication. Insufflation was obtained to 15 mmHg at this time. The re was no injury to vital structures upon entering the abdomen. 2 additional trocars were placed, on e in the epigastrium, one in the right upper quadrant. Both of these were similarly anesthetized, sh arply incised. A 5 mm trocar was placed under direct vision without incident or complication. The u mbilical trocar was then upsized to a 12 mm under direct visualization. The patient was positioned i n the head up right-side up position. Ratcheted grasper was used to grasp patient's gallbladder, whi ch is difficult to grasp. A decompression needle was attempted at this point, but the bile and mater ial was thickened viscous and unable to be adequately suctioned out. As such, there was minimal mate rial returned, but I could grasp the gallbladder, placed towards the patient's right shoulder. I con tinued dissection down the Feliciano pouch of the gallbladder, dissecting down 2 structures, identifie d as both the cystic duct and cystic artery. These structures were skeletonized. The critical view of safety was obtained at this point. I placed double titanium clips on the proximal side and singly on the distal side of both cystic duct and cystic artery just after indocyanine green cholangiograph y confirmed the anatomic structures as described above for the critical view. I then ligated the str ucture between Endo Eric. The gallbladder was then removed from the hepatic fossa without incident or complication. There was minimal bleeding from the midportion of the hepatic fossa, which require d minimal fulguration. At this point, the gallbladder was placed in EndoCatch bag, removed the umbil ical trocar, and sent off for pathologic examination. There was no bile spillage throughout the proc edure. The area was copiously irrigated and suctioned out completely dry. No hemostatic measures re quired. Clips were found in good anatomic position. Indocyanine green cholangiography confirmed no leakage of bile at the end of the procedure. At this point, I suctioned out the remaining effluent, sprayed Sandie hemostatic powder in the subhepatic space and then the patient remained in the neutral position after this. I then closed the 12 mm trocar site using a Jose G-Jose suture passer with 0 Vicryl interrupted fashion with good approximation of tissue. The abdomen was desufflated under d irect visualization without incident or complication. The remaining trocars were removed. All skin incisions were then copiously irrigated and closed with a 4-0 Monocryl in a running fashion. Dermabo nd was placed over top. The patient tolerated the procedure without incident or complication, transf erred to PACU in stable condition. All counts were correct at the end of the case. IRVIN/DEEP Voice ID: [id number] Report ID: [id number]
[2024-08-17 05:21] LABS: Absolute Lymphocytes (CBC) 0.9 K/uL (0.7-4.9); Absolute Monocytes 0.4 K/uL (0.1-1.3); Absolute Neutrophil 7.2 K/uL (1.8-8.0); Hematocrit 33.9 % (36.0-45.0); Hemoglobin 11.6 g/dL (12.0-15.0); Lymphocytes % 10.9 % (15.3-44.8); MCH 31.1 pg (27.0-35.0); MCHC 34.1 g/dL (32.0-36.0); MCV 91.3 fL (80-100); MPV 9.6 fL (7.6-11.3); Monocytes % 4.7 % (3.3-12.3); Neutrophils % 84.4 % (41.7-73.7); Nucleated Red Blood Cells % 0.1 % (0-0); Platelets 262 thou/uL (152-406); RBC Red Blood Cell Count 3.71 M/uL (3.86-4.86); Red Cell Distribution Width 12.7 % (12.1-15.2)
[2024-08-17 05:35] LABS: Albumin 2.9 g/dL (3.4-5.0); Albumin/Globulin Ratio 0.9 (1.1-1.8); Anion Gap 4.8 mEq/L (5.0-15.0); Bilirubin Total 0.5 mg/dL (0.2-1.0); Globulin 3.3 g/dL (2.3-3.5); Magnesium 2.1 mg/dL (1.6-2.4); Phosphorus 3.5 mg/dL (2.5-4.9); Potassium 3.8 mEq/L (3.5-5.1); Protein, Total 6.2 g/dL (6.4-8.2)
[2024-08-17] MEDS: POTASSIUM CL SA 10 MEQ TAB PO ONE (08:08)
[2024-08-17] MEDS ORDERED: SIMETHICONE 125 MG TAB PO SCH ×2 (09:00)
[2024-08-17] MEDS: SIMETHICONE 125 MG TAB PO ONE (09:46)
[2024-08-17 14:31] VITALS: BP 123/61; TEMP 97.1
== END 2024-08-17 13:00 | disposition home or self-care (01) | DRG 419 ==
LOC: ER 01:53 → ERHOLD 05:29 → 2ND 14:25
PROVIDERS: ADMIT Family Medicine; ATTEND Internal Medicine
PROC: BF52200 Other Imaging of Gallbladder using Fluorescing Agent, Indocyanine Green Dye, Intraoperative (ICD-10-PCS; 2024-08-16)
PROC: 0FT44ZZ Resection of Gallbladder, Percutaneous Endoscopic Approach (ICD-10-PCS; principal; 2024-08-16 16:15)
DX: K80.00 Calculus of gallbladder with acute cholecystitis without obstruction (principal); Z90.710 Acquired absence of both cervix and uterus
CPT/HCPCS: 36415; 74177; 76705; 80053; 81001; 81025; 83690; 83735; 84100; 85025; 85610; 96361; 96365; 96366; 96375; 99285; J1100; J1171; J1650; J2003; J2250; J2270; J2405; J2543; J2704; J2765; J3010; J3480; J7030; J7120; Q9967